=== PATIENT | female | born 1980 | race Two or more races ===

== ENCOUNTER → 2024-03-08 | Outpatient (CLI) | payer MEDICAID ==
[~2024-03-08] MED LIST: ACET500T58 PO; DOXY-286 PO; IBUP-1455 PO
[2024-03-08 08:55] LABS: Urine Bacteria None Seen /hpf (None Seen)
[2024-03-08 09:10] LABS: Basophils # (auto) 0 10 ^3/uL (0-0.2); Basophils % (auto) 0.6 % (0.0-2.0); Eosinophils # (auto) 0.3 10 ^3/uL (0-0.8); Eosinophils % (auto) 4.4 % (0.0-7.0); Hematocrit 32.5 % (36.0-46.0); Hemoglobin 10.8 g/dL (12.2-16.2); Lymphocytes # (auto) 2.3 10 ^3/uL (0.4-5.4); Lymphocytes % (auto) 38.4 % (10.0-50.0); Mean Corpuscular Hemoglobin 28.6 pg (28.0-32.0); Mean Corpuscular Hgb Conc. 33.4 g/dL (32.0-36.0); Mean Corpuscular Volume 85.8 fL (80.0-100.0); Monocytes # (auto) 0.3 10 ^3/uL (0-1.3); Monocytes % (auto) 5.9 % (0.0-12.0); Neutrophils % (auto) 50.7 % (37.0-80.0); Nucleated Red Blood Cells % 0.1 %; Platelet Count (auto) 302 10^3/uL (140-450); Red Blood Cells 3.78 10^6/uL (4.0-5.20); Red Cell Distribution Width 14.4 % (11.8-14.3); White Blood Cell 5.9 10^3/uL (4.4-10.8)
[2024-03-08 09:16] LABS: Urine Blood 3+ /uL (Negative); Urine Clarity Turbid (Clear); Urine Color Light-Yellow (Yellow); Urine Mucus FEW (None Seen); Urine Protein, UAD Negative (Negative); Urine Specific Gravity 1.017 (1.001-1.035); Urine Urobilinogen Normal (Negative); Urine WBC 9 /hpf (0 - 5)
[2024-03-08 09:53] LABS: Alanine Aminotransferase 20 U/L (7-40); Albumin 4.1 g/dL (3.2-4.8); Alkaline Phosphatase 61 U/L (46-116); Anion Gap 6 (5-15); Aspartate Aminotransferase 15 U/L (13-40); BUN/Creatinine Ratio 16.7 (10.0-20.0); Bilirubin, Total 0.3 mg/dL (0.2-1.0); Blood Urea Nitrogen 10 mg/dL (9-23); Calcium 8.7 mg/dL (8.7-10.4); Carbon Dioxide 25 mmol/L (20-31); Chloride 109 mmol/L (98-107); Cholesterol 169 mg/dL (< 200); Glucose 99 mg/dL (74-106); HDL Cholesterol 43 mg/dL (40-59); LDL Cholesterol 105 mg/dL (< 100); Sodium 140 mmol/L (136-145); Total Protein 6.5 g/dL (5.7-8.2); Triglycerides 208 mg/dL (< 150)
[2024-03-08 10:47] LABS: Ferritin 8.6 ng/mL (10-291)
[2024-03-09 08:06] LABS: RPR Non Reactive (Non Reactive)
[2024-03-09 09:14] LABS: Folate (Folic Acid) 15.67 ng/mL (>5.38)
[2024-03-10 11:14] LABS: Hepatitis B Surface Antigen Negative (Negative)
[2024-03-10 11:35] LABS: Hepatitis A Ab IgM Negative
[2024-03-10 11:36] LABS: Hepatitis B Core IgM Negative; Hepatitis C Antibody Negative (Negative)
== END | disposition home or self-care (01) ==
LOC: LAB 08:31
DX: Z11.3 Encounter for screening for infections with a predominantly sexual mode of transmission (principal); Z00.01 Encounter for general adult medical examination with abnormal findings; K62.5 Hemorrhage of anus and rectum; D64.9 Anemia, unspecified
CPT/HCPCS: 36415; 80053; 80061; 80074; 81001; 82274; 82306; 82607; 82728; 82746; 83036; 83540; 83550; 84443; 85025; 86592; 86703

== ENCOUNTER 2025-05-13 08:25 | Day surgery (SDC) | payer MEDICAID ==
[2025-05-11 11:29] LABS: Hematocrit 38.9 % (36.0-46.0); Hemoglobin 12.9 g/dL (12.2-16.2); Mean Corpuscular Hemoglobin 27.6 pg (28.0-32.0); Mean Corpuscular Volume 83.6 fL (80.0-100.0); Nucleated Red Blood Cells % 0.0 %
[2025-05-11 11:43] LABS: INR 0.95 (0.9-1.15); Partial Thromboplastin Time 28.6 SEC (24.5-34.5); Prothrombin Time 10.1 sec (9.3-11.8)
[2025-05-11 11:50] LABS: Alanine Aminotransferase 39 U/L (7-40); Albumin 4.4 g/dL (3.2-4.8); Alkaline Phosphatase 74 U/L (46-116); Anion Gap 10 (5-15); BUN/Creatinine Ratio 11.9 (10.0-20.0); Bilirubin, Total 0.4 mg/dL (0.2-1.0); Calcium 9.4 mg/dL (8.7-10.4); Carbon Dioxide 26 mmol/L (20-31); Chloride 103 mmol/L (98-107); Glucose 91 mg/dL (74-106); Potassium 3.9 mmol/L (3.5-5.1); Sodium 139 mmol/L (136-145); Total Protein 7.4 g/dL (5.7-8.2)
[2025-05-11 11:51] LABS: Blood Urea Nitrogen 7 mg/dL (9-23)
[~2025-05-13] VITALS: Ht 152.4 cm; Wt 99.8 kg
[~2025-05-13 08:25] MED LIST changes: -ACET500T58 PO; +CYAN-17 PO; -DOXY-286 PO; -IBUP-1455 PO
[2025-05-13] MEDS: MIDAZOLAM HCL 2MG/2ML 2ml VIAL (1mg/ml) ONE (09:36)
[2025-05-13] MEDS: fentaNYL CITRATE 100 MCG/2 ML VL ONE (09:36)
[2025-05-13 09:57] VITALS: PULSE 79; RESP 18; TEMP 97.8; O2SAT 96
--- NOTE | 2025-05-13 09:57 | DVHNC2 ---
Procedure - DATE: MAY 13, 2025 PROCEDURE PERFORMED BY: AURORA MCGILL MD REFERRING PROVIDER: DELROY HERNANDEZ MD PROCEDURE PERFORMED: 1. COLONOSCOPY WITH MODERATE SEDATION 2. COLONOSCOPY WITH COLD BIOPSY POLYPECTOMY PREPROCEDURE DIAGNOSIS: 1. HEMATOCHEZIA 2. HISTORY OF HEMORRHOIDS POSTPROCEDURE DIAGNOSIS: 1. EXTERNAL HEMORRHOIDS 2. SMALL INTERNAL HEMORRHOIDS 3. TWO SMALL COLON POLYPS INDICATIONS FOR PROCEDURE: THE PATIENT IS A 45-YEAR-OLD FEMALE WITH A HISTORY OF RECTAL BLEEDING. PATIENT ALSO HAS HISTORY OF HEMORRHOIDS. LAST COLONOSCOPY WAS IN 2021. MEDICATIONS USED: 6 MG OF VERSED IV AND 100 MCG OF FENTANYL IV DETAILS OF THE PROCEDURE: Informed consent was obtained after risks benefits and alternatives were discussed at length with the patient. The patient gave consent to the procedure as well as a medication used for sedation. He was placed in the left lateral decubitus position. Digital rectal exam showed internal hemorrhoids and external hemorrhoids. An Olympus variable torsion adult colonoscope was inserted into the rectum and advanced to the cecum. The cecum was identified by the ileocecal valve and the appendiceal orifice. The scope was then withdrawn. The prep was good with only small amounts and stool. [place] bowel prep score of nine was noted. There were no large polyps, masses, strictures, or arteriovenous malformation seen. The patient had two small polyps one in the sigmoid and one in the rectum removed completely with cold biopsy polypectomy. Retroflexion showed internal hemorrhoids. More than six months withdrawal time was noted. The patient tolerated the procedure well. COLONOSCOPY START TIME: 944 CECUM TIME: 946 COLONOSCOPY END TIME: 955 IMPRESSION: 1. INTERNAL AND EXTERNAL HEMORRHOIDS 2. TWO SMALL COLON POLYPS RECTAL BLEEDING IS DUE TO HEMORRHOIDS. RECOMMENDATIONS: 1. FOLLOW UP WITH PRIMARY CARE PHYSICIAN 2. HIGH-FIBER DIET 3. REPEAT COLONOSCOPY IN 5 YEARS UNLESS OTHERWISE INDICATED BY SYMPTOMS OR FAMILY HISTORY 4. PATIENT WOULD BENEFIT FROM SURGICAL REFERRAL FOR HEMORRHOIDECTOMY I WOULD LIKE TO THANK DR. HERNANDEZ FOR THIS REFERRAL AURORA MCGILL MD May 13, 2025 09:57
[2025-05-13 10:20] VITALS: BP 127/84; PULSE 73; RESP 19; O2SAT 96
== END 2025-05-13 10:35 | disposition home or self-care (01) ==
LOC: GI 08:25
PROVIDERS: ATTEND Specialist
DX: K62.5 Hemorrhage of anus and rectum (principal); K63.5 Polyp of colon; K64.8 Other hemorrhoids; K62.1 Rectal polyp; K64.4 Residual hemorrhoidal skin tags; E66.9 Obesity, unspecified; Z90.49 Acquired absence of other specified parts of digestive tract; Z98.891 History of uterine scar from previous surgery; Z79.899 Other long term (current) drug therapy; Z86.2 Personal history of diseases of the blood and blood-forming organs and certain disorders involving the immune mechanism
CPT/HCPCS: 36415; 45380; 80053; 81025; 85025; 85610; 85730; 88305; A4649; J2250; J3010; 99152